=== PATIENT | female | born 1970 | race Caucasian/White ===

== ENCOUNTER 2019-03-24 05:21 | Inpatient (IN) | payer MEDICARE, OTHER ==
[~2019-03-24] VITALS: Ht 165.1 cm; Wt 89.4 kg
[2019-03-24] MEDS ORDERED: FENTANYL PF 100MCG/2ML AMPUL ONE ×3 (05:47→08:28)
[2019-03-24] MEDS ORDERED: MIDAZOLAM HCL 2 MG/2ML VIAL ONE (05:47)
[2019-03-24] MEDS ORDERED: BUPIVACAINE 0.5 % PF 150 MG/30 ML VIAL ONE ×2 (05:49→07:54)
[2019-03-24 06:15] LABS: BASOPHILS % (AUTO) 0.7 % (0.0-2.0); HEMATOCRIT 39 % (33-45); HEMOGLOBIN 13.2 g/dL (11.5-14.8); LYMPHOCYTES # (AUTO) 1.4 /CMM (0.8-4.8); LYMPHOCYTES % (AUTO) 39.1 % (20.0-44.0); MEAN CORPUSCULAR HGB CONC 34 g/dl (31.0-36.0); MEAN CORPUSCULAR VOLUME 90 fL (82-100); MONOCYTES # (AUTO) 0.3 /CMM (0.1-1.30); MONOCYTES % (AUTO) 7.8 % (2.0-12.0); NEUTROPHILS # (AUTO) 1.9 /CMM (1.8-8.9); NEUTROPHILS % (AUTO) 52.4 % (43.0-81.0); PLATELET COUNT (AUTO) 275 /CMM (150-450); RED BLOOD CELL COUNT(AUTO) 4.32 MIL/uL (4.0-5.2); WHITE BLOOD COUNT (AUTO) 3.7 K/uL (4.3-11.0)
[2019-03-24 07:03] LABS: CALCIUM, SERUM 8.9 mg/dL (8.5-10.1); CREATININE 0.9 mg/dL (0.6-1.3)
[2019-03-24] MEDS ORDERED: SEVOFLURANE 250 ML BOTTLE IH ONE (07:19)
[2019-03-24] MEDS ORDERED: TRANEXAMIC ACID 3,000 MG in SODIUM CHLORIDE IRRIG SOLUTION 70 ML IR ONE (07:30)
[2019-03-24] MEDS ORDERED: BACITRACIN 50000 UNITS/VIAL ONE (08:36)
[2019-03-24] MEDS ORDERED: ANESTHESIA TRAY IN PYXIS 1 EA TRAY MC ONE (08:37)
[2019-03-24] MEDS ORDERED: HYDROMORPHONE 1 MG/1 ML DISP.SYRIN ONE ×2 (08:47→09:21)
[2019-03-24] MEDS ORDERED: HYDROCODONE/APAP 5/325MG 1 EACH TABLET PO PRN (09:00)
[2019-03-24] MEDS ORDERED: ASPIRIN 325 MG TABLET PO SCH (09:00)
[2019-03-24] MEDS ORDERED: ONDANSETRON HCL/PF 4 MG/2 ML VIAL IVP PRN (09:00)
[2019-03-24] MEDS ORDERED: ACETAMINOPHEN 325 MG TABLET PO PRN (09:00)
[2019-03-24] MEDS ORDERED: DOCUSATE SODIUM 250 MG CAPSULE PO PRN (09:00)
[2019-03-24] MEDS ORDERED: HYDROMORPHONE 1 MG/1 ML DISP.SYRIN SQ ONE (09:09)
[2019-03-24] MEDS ORDERED: diphenhydrAMINE HCL 25 MG CAPSULE PO PRN (09:30)
[2019-03-24] MEDS ORDERED: LORAZEPAM 1 MG TABLET PO PRN (09:30)
[2019-03-24] MEDS ORDERED: MENTHOL/CETYLPYRD (CEPACOL) 1 LOZ LOZENGE PO PRN (09:30)
[2019-03-24] MEDS ORDERED: CLONIDINE HCL 0.1 MG TABLET PO PRN (09:30)
[2019-03-24] MEDS ORDERED: oxyCODONE IR immediate release 5 MG PO PRN (09:30)
[2019-03-24] MEDS ORDERED: MAG HYDROX/AL HYDROX/SIMETH 30 ML UDC PO PRN (09:30)
[2019-03-24 09:54] VITALS: BP 124/63
[2019-03-24 10:04] VITALS: BP 128/70
--- NOTE | 2019-03-24 10:06 | NUR ---
RN NOTES PT ARRIVED ONTO THE UNIT FROM THE OR S/P RIGHT TOTAL KNEE ARTHROPLASTY @5112. PT HAS LEFT AC #18 INTACT AND PATENT. PT HAS SCD PUMP. AND IMMOBILIZER IN PLACE. ORIENTED THE PATIENT TO THE USE OF THE CALL LIGHT. SAFETY PRECAUTIONS IN PLACE, BED IN LOWEST LOCKED POSITION, X2 SIDE RAILS UP AND CALL LIGHT WITHIN REACH. WILL CONTINUE TO MONITOR.
[2019-03-24 10:34] VITALS: BP 125/69
[2019-03-24] MEDS ORDERED: MAGNESIUM HYDROXIDE 30 ML UDC PO PRN (11:00)
[2019-03-24] MEDS ORDERED: Z GUARD REMEDY 2 OZ OINT TP PRN (11:00)
[2019-03-24 11:04] VITALS: BP 125/68
[2019-03-24] MEDS: IV D5/0.45 NACL 1,000 ML IV PRN ×2 (11:12→22:59)
[2019-03-24] MEDS ORDERED: IBUP-1955 PO (11:36)
[2019-03-24] MEDS ORDERED: OXYC-454 PO (11:36)
[2019-03-24] MEDS ORDERED: LEVO200T PO (11:36)
[2019-03-24] MEDS ORDERED: TRAM50TA2 PO (11:36)
[2019-03-24] MEDS: ONDANSETRON HCL/PF 4 MG/2 ML VIAL IVP PRN ×3 (13:10→21:38)
[2019-03-24] MEDS: ANCEF 1 GM/50 ML D5W IV SCH ×4 (15:14→22:58)
[2019-03-24] MEDS: HYDROMORPHONE 1 MG/1 ML DISP.SYRIN SQ PRN ×2 (15:14→20:34)
--- NOTE | 2019-03-24 15:57 | NUR ---
rn notes per dr mckinney give prn oxycodone with dinner.
[2019-03-24] MEDS: DOCUSATE SODIUM 100 MG CAPSULE PO SCH (17:20)
[2019-03-24] MEDS: oxyCODONE IR immediate release 5 MG PO PRN ×2 (17:22→23:10)
--- NOTE | 2019-03-24 18:47 | NUR ---
RN CLOSING NOTES PT AWAKE AND RESTING IN BED. S/P RIGHT TOTAL KNEE ARTHROPLASTY @0945 DR DICKERSON. PT HAS LEFT AC #18 INTACT AND PATENT AND RUNNING D51/2NS @125 ML/HR. PT HAS DVT PUMPS AND IMMOBILIZER IN PLACE. SAFETY PRECAUTIONS IN PLACE, BED IN LOWEST LOCKED POSITION, X2 SIDE RAILS UP AND CALL LIGHT WITHIN REACH. ALL ORDERS CARRIED OUT ORDERED. ALL PATIENT NEEDS MET DURING SHIFT. WILL ENDORSE TO WATER RESOURCE SPECIALIST NURSE FOR CONTINUITY OF CARE.
--- NOTE | 2019-03-24 19:20 | NUR ---
RN OPEN NOTES RECEIVED PATIENT AWAKE IN BED. A/OX4. NO SIGNS OF DISTRESS OR DISCOMFORT. BREATHING EVEN AND UNLABORED. IV ACCESS IN LAC WITH D5 1/2 NS INFUSING PATENT AND INTACT, NO SIGNS OF REDNESS OR INFILTRATION. DRESSING ON R KNEE C/D/I. IMMOBILIZER INPLACE. BED IN LOW LOCKED POSITION WITH SIDE RAILS X2. CALL LIGHT WITHIN REACH. WILL CONTINUE TO MONITOR.
[2019-03-24 20:00] VITALS: BP 126/82
[2019-03-24] MEDS: FAMOTIDINE (20 MG) 20 MG TABLET PO SCH (20:34)
--- NOTE | 2019-03-24 20:34 | NUR ---
RN NOTES ADMINISTERED DILAUDID 1MG ORDERED FOR 10/10 R KNEE PAIN AT PATIENT REQUEST. VSS. WILL CONTINUE TO MONITOR.
--- NOTE | 2019-03-24 21:38 | NUR ---
RN NOTES ADMINISTERED ZOFRAN 4 MG ORDERED FOR NAUSEA, AT PATIENT REQUEST. WILL CONTINUE TO MONITOR.
[2019-03-24] MEDS ORDERED: ZOLPIDEM TARTRATE 5 MG TABLET PO PRN (22:00)
[2019-03-24] MEDS ORDERED: BISACODYL SUPP (10 MG) 10 MG/SUPP.RECT SUPP.RECT RC PRN (22:00)
[2019-03-24] MEDS ORDERED: SENNOSIDES 8.6 MG TABLET PO PRN (22:00)
--- NOTE | 2019-03-24 23:10 | NUR ---
RN NOTES ADMINISTERED OXY IR 15MG ORDERED FOR 7/10 R KNEE PAIN AT PATIENT REQUEST. VSS. WILL CONTINUE TO MONITOR.
[2019-03-25] MEDS: HYDROMORPHONE 1 MG/1 ML DISP.SYRIN SQ PRN ×7 (01:34→23:27)
--- NOTE | 2019-03-25 01:34 | NUR ---
RN NOTES ADMINISTERED DILAUDID 4MG ORDERED FOR 04/29 R KNEE PAIN AT PATIENT REQUEST. VSS. WILL CONTINUE TO MONITOR. Addendum: 03/25/19 at 0705 by JAVIER GUEVARA RN ERROR: DILAUDID 1MG WAS GIVEN.
[2019-03-25] MEDS: oxyCODONE IR immediate release 5 MG PO PRN ×6 (03:24→20:34)
--- NOTE | 2019-03-25 03:24 | NUR ---
RN NOTES ADMINISTERED OXY IR 15MG ORDERED FOR 9/10 R KNEE PAIN AT PATIENT REQUEST. VSS. WILL CONTINUE TO MONITOR.
[2019-03-25] MEDS: ONDANSETRON HCL/PF 4 MG/2 ML VIAL IVP PRN ×2 (05:59→10:39)
--- NOTE | 2019-03-25 05:59 | NUR ---
RN NOTES ADMINISTERED ZOFRAN 4MG ORDERED FOR NAUSEA AT PATIENT REQUEST. WILL CONTINUE TO MONITOR.
--- NOTE | 2019-03-25 06:58 | NUR ---
RN OPEN NOTES PATIENT RESTING IN BED, EASILY AROUSABLE. A/OX4. NO SIGNS OF DISTRESS OR DISCOMFORT. BREATHING EVEN AND UNLABORED. IV ACCESS IN LAC WITH D5 1/2 NS INFUSING PATENT AND INTACT, NO SIGNS OF REDNESS OR INFILTRATION. DRESSING ON R KNEE C/D/I. IMMOBILIZER INPLACE. ALL NEEDS MET. NO SIGNIFICANT CHANGES THROUGH THE NIGHT. BED IN LOW LOCKED POSITION WITH SIDE RAILS X2. CALL LIGHT WITHIN REACH. WILL ENDORSE TO AM SHIFT FOR JAKE
--- NOTE | 2019-03-25 07:01 | NUR ---
YISEL NOTES ADMINISTERED DILAUDID 4MG ORDERED FOR 03/29 R KNEE PAIN AT PATIENT REQUEST. VSS. WILL CONTINUE TO MONITOR. Addendum: 03/25/19 at 0703 by JAVIER GUEVARA RN ERROR: WRONG TIME DOCUMENTED. WAS DONE AT 0559 Addendum: 03/25/19 at 0705 by JAVIER GUEVARA RN ERROR: DILAUDID 1MG WAS GIVEN.
--- NOTE | 2019-03-25 07:33 | NUR ---
MS/RN OPENING NOTE PATIENT IN BED IN STABLE CONDITION. A/O X 4. NO SIGNS OF ACUTE DISTRESS. COMPLAIN OF PAIN TO RIGHT KNEE S/P RIGHT KNEE ARTHROPLASTY RATED 9/10, PRN DILAUDID ADMINISTERED AT 5:59AM. WILL ADMINISTER OXY IR FOR PAIN MGMT AT THIS TIME. ALL NEEDS ATTENDED TO. CALL LIGHT WITHIN REACH. WILL CONTINUE TO MONITOR TO ENSURE SAFETY.
[2019-03-25 07:43] LABS: CALCIUM, SERUM 8.1 mg/dL (8.5-10.1); CREATININE 0.7 mg/dL (0.6-1.3); MAGNESIUM 1.5 mg/dL (1.8-2.4); PHOSPHORUS 3.5 mg/dL (2.5-4.9); POTASSIUM 3.5 mmol/L (3.5-5.1)
[2019-03-25 07:53] LABS: BASOPHILS % (AUTO) 0.5 % (0.0-2.0); HEMATOCRIT 33 % (33-45); HEMOGLOBIN 11.3 g/dL (11.5-14.8); LYMPHOCYTES # (AUTO) 0.7 /CMM (0.8-4.8); LYMPHOCYTES % (AUTO) 8.2 % (20.0-44.0); MEAN CORPUSCULAR HGB CONC 34 g/dl (31.0-36.0); MEAN CORPUSCULAR VOLUME 90 fL (82-100); MONOCYTES # (AUTO) 0.6 /CMM (0.1-1.30); MONOCYTES % (AUTO) 7.2 % (2.0-12.0); NEUTROPHILS # (AUTO) 7.5 /CMM (1.8-8.9); NEUTROPHILS % (AUTO) 84.1 % (43.0-81.0); PLATELET COUNT (AUTO) 240 /CMM (150-450); RED BLOOD CELL COUNT(AUTO) 3.71 MIL/uL (4.0-5.2); WHITE BLOOD COUNT (AUTO) 8.9 K/uL (4.3-11.0)
[2019-03-25 08:00] VITALS: BP 129/75
[2019-03-25] MEDS: BISACODYL (5 MG) 5 MG TABLET.DR PO SCH (08:01)
[2019-03-25] MEDS: DOCUSATE SODIUM 100 MG CAPSULE PO SCH ×2 (08:01→16:02)
[2019-03-25] MEDS: ASPIRIN 325 MG TABLET PO SCH ×2 (08:01→16:02)
[2019-03-25] MEDS: FAMOTIDINE (20 MG) 20 MG TABLET PO SCH ×2 (08:01→20:29)
[2019-03-25] MEDS: Magnesium 1GM/D5W 100ML PREMIX 100 ML IV SCH ×2 (10:34→11:43)
--- NOTE | 2019-03-25 14:23 | NUR ---
MS/RN SPOKE WITH DR ELIECER Khoury AND NOTIFIED PATIENT NOTED DRINKING ENOUGH FLUIDS, IF OKAY TO DC IV FLUIDS PER DR ELIECER Ryan. ORDER TO DC D5 .45NS AT 125MLS/HR. NOTED AND CARRIED OUT. PATIENT NOTIFIED.
[2019-03-25 16:00] VITALS: BP 126/71
--- NOTE | 2019-03-25 16:37 | NUR ---
MS/RN SPOKE WITH DR CASTORENA AND NOTIFIED PATIENT PAIN LEVEL PRIOR TO DILAUDID 1MG SQ RATED 10/10 AND POST DILAUDID RATED 8/10 AND OXY IR 15MG GIVEN IN BETWEEN DILAUDID 1MG SQ PRN, AND STILL NO RELIEVE FROM PAIN AND PRIOR TO WORKING WITH CPM MACHINE PAIN WAS BEING RELIEVED BUT S/P CPM PAIN LEVEL GOES DOWN BUT NO RELIEVE STILL THERE IS THROBBING PAIN NOTED. PER DR CASTORENA CONTINUE THE SAME REGIMEN FOR NOW AND CONTINUE TO MONITOR AND WILL ASSESS THE PATIENT TOMORROW.
--- NOTE | 2019-03-25 18:08 | NUR ---
MS/RN CLOSING NOTE PATIENT IN BED IN STABLE CONDITION. A/O X 4. NO SIGNS OF ACUTE DISTRESS. S/P OXY IR 15MG AT 5:33PM FOR RIGHT KNEE PAIN S/P RIGHT KNEE TOTAL ARTHROPLASTY. TOLERATING WELL. ALL NEEDS ATTENDED TO. CALL LIGHT WITHIN REACH. WILL ENDORSE TO NEXT SHIFT FOR CONTINUITY OF CARE.
--- NOTE | 2019-03-25 19:05 | NUR ---
MS RN OPENING NOTES Patient received in bed, alert, oriented x 4. Family at bedside. Breathing even and unlabored. Not in any distress, on room air. No complaints of pain or discomfort at this time. R knee immobilizer in place. Call light within reach, bed in low, locked position. Will continue to monitor accordingly
[2019-03-25 20:00] VITALS: BP 141/76
[2019-03-25 20:14] VITALS: BP 141/76
--- NOTE | 2019-03-25 20:35 | NUR ---
RN NOTES Patient c/o R knee pain, 02/26. Requested for pain pill. Oxycodone IR given as ordered. Will continue to monitor accordingly
[2019-03-26] MEDS: oxyCODONE IR immediate release 5 MG PO PRN ×4 (01:34→12:51)
[2019-03-26] MEDS: HYDROMORPHONE 1 MG/1 ML DISP.SYRIN SQ PRN ×3 (03:52→11:09)
[2019-03-26] MEDS: ONDANSETRON HCL/PF 4 MG/2 ML VIAL IVP PRN ×2 (03:56→08:57)
[2019-03-26 06:26] LABS: BASOPHILS % (AUTO) 0.1 % (0.0-2.0); HEMATOCRIT 34 % (33-45); HEMOGLOBIN 11.6 g/dL (11.5-14.8); LYMPHOCYTES # (AUTO) 0.6 /CMM (0.8-4.8); LYMPHOCYTES % (AUTO) 7.8 % (20.0-44.0); MEAN CORPUSCULAR HGB CONC 34 g/dl (31.0-36.0); MEAN CORPUSCULAR VOLUME 90 fL (82-100); MONOCYTES # (AUTO) 0.8 /CMM (0.1-1.30); MONOCYTES % (AUTO) 9.9 % (2.0-12.0); NEUTROPHILS # (AUTO) 6.5 /CMM (1.8-8.9); NEUTROPHILS % (AUTO) 82.2 % (43.0-81.0); PLATELET COUNT (AUTO) 240 /CMM (150-450); RED BLOOD CELL COUNT(AUTO) 3.81 MIL/uL (4.0-5.2); WHITE BLOOD COUNT (AUTO) 7.9 K/uL (4.3-11.0)
--- NOTE | 2019-03-26 06:37 | NUR ---
MS RN CLOSING NOTES Patient still sleeping in bed, easily arousable. Breathing even and unlabored. Not in any distress, on room air. No acute changes overnight. No complaints of pain at this time. Patient used CPM machine for about 2 hrs- tolerating well. All needs attended to. Will endorse JAKE to oncoming RN.
[2019-03-26 06:57] LABS: CALCIUM, SERUM 8.9 mg/dL (8.5-10.1); CREATININE 0.7 mg/dL (0.6-1.3); POTASSIUM 3.8 mmol/L (3.5-5.1)
--- NOTE | 2019-03-26 07:25 | NUR ---
RN OPENING NOTE PT WAS RECEIVED IN BED AT LOWEST AND LOCKED POSITION WITH SIDE RAILS UP X2, A/O X4 BREATHING EVEN AND UNLABORED ON RA, NO S/S OF ANY PAIN OR DISTRESS NOTED AT THIS TIME, PT NOTED TO HAVE TO HAVE RIGHT KNEE DRESSING THAT WILL BE CHANGED TODAY BY MD PER NIGHT RN, PT WAS NOTED TO BE AMBULATORY WITH WALKER, PER PT SHE HAS ALREADY DONE TWO HOURS OF CPM TODAY. NOTED TO HAVE LEFT AC IV THAT IS PATENT AND INTACT, POSSIBLE D.C/C PLANNING TODAY. SAFETY PRECAUTIONS IN PLACE, CALL LIGHT WITHIN, WILL MONITOR PT ACCORDINGLY
[2019-03-26] MEDS ORDERED: LEVOTHYROXINE SODIUM 100 MCG TABLET PO SCH (07:30)
[2019-03-26 08:00] VITALS: BP 121/68
[2019-03-26] MEDS: DOCUSATE SODIUM 100 MG CAPSULE PO SCH ×2 (08:02→16:31)
[2019-03-26] MEDS: FAMOTIDINE (20 MG) 20 MG TABLET PO SCH (08:03)
[2019-03-26] MEDS: BISACODYL (5 MG) 5 MG TABLET.DR PO SCH (08:03)
[2019-03-26] MEDS: ASPIRIN 325 MG TABLET PO SCH ×2 (08:03→16:31)
--- NOTE | 2019-03-26 09:40 | NUR ---
RN NOTE PT CURRENTLY WALKING AROUND THE FLOOR WITH PHYSICAL THERAPY AND THE USE OF HER WALKER
--- NOTE | 2019-03-26 11:25 | NUR ---
RN NOTE LEFT AC GAUGE 18 IV REMOVED DUE TO LEAKAGE, NEW 24 GAUGE IV INSERTED IN RIGHT FOREARM AT THIS TIME
[2019-03-26 16:00] VITALS: BP 123/70
--- NOTE | 2019-03-26 17:09 | NUR ---
MS RN NOTE PER LYNN DALOTN NO NEED FOR DRESSING CHANGE, DRESSING CAN BE DONE IN FOLLOW UP OFFICE VISIT, PT CLEARED FOR D/C
--- NOTE | 2019-03-26 17:29 | NUR ---
DISCHARGE NOTE PT WAS DISCHARGED AT THIS TIME IN MEDICALLY STABLE CONDITION BACK HOME WITH HER FRIEND LAKSHMI BURCH AT THIS TIME. IV AND ID BAND WERE REMOVED. ALL D/C PAPERWORK, EXITCARE, AND BELONGING LIST WERE SIGNED, DISCUSSED, AND HANDED TO THE PT. ALL BELONGINGS WERE TAKEN BY THE PATIENT. PT SKIN WAS NOTED TO BE DRY AND INTACT, PER SOPHIE BUCIO DRESSING ON RIGHT KNEE TO BE CHANGED IN OFFICE BY MD. ALL NEEDS WERE ATTENDED TO DURING HER STAY. PT WAS TAKEN DOWN BY ME AT THIS TIME VIA WHEELCHAIR WHERE SHE LEFT WITH HER FRIEND IN THEIR PRIVATE CAR.
== END 2019-03-26 17:24 | disposition home or self-care (01) | DRG 470 ==
LOC: DS 05:21 → MED 10:25
PROVIDERS: ADMIT Hospitalist; ATTEND Hospitalist
PROC: 0SRC0J9 Replacement of Right Knee Joint with Synthetic Substitute, Cemented, Open Approach (ICD-10-PCS; principal; 2019-03-24)
DX: M12.561 Traumatic arthropathy, right knee (principal); K59.00 Constipation, unspecified; I10 Essential (primary) hypertension; E66.9 Obesity, unspecified; Z68.32 Body mass index [BMI] 32.0-32.9, adult; Z98.84 Bariatric surgery status; Z90.710 Acquired absence of both cervix and uterus; Z87.891 Personal history of nicotine dependence; Z98.890 Other specified postprocedural states; Z83.3 Family history of diabetes mellitus; Z82.0 Family history of epilepsy and other diseases of the nervous system; Z80.0 Family history of malignant neoplasm of digestive organs; E03.9 Hypothyroidism, unspecified; E83.42 Hypomagnesemia; Z79.899 Other long term (current) drug therapy; K59.09 Other constipation; E05.90 Thyrotoxicosis, unspecified without thyrotoxic crisis or storm
CPT/HCPCS: 36415; 80048-TC; 80061-TC; 83735-TC; 84100-TC; 85025-TC; 85610-TC; 85730-TC; 86850-TC; 86921-TC; 87081-TC; 88305-TC; 88311-TC; 97110-TC; 97116-TC; 97530-TC; 97760-TC; A4217; C1713; G0378; J0330; J0690; J1100; J1170; J2250; J2405; J2765; J3010; J3475; J3490; J7060; L1830; Q0163

== ENCOUNTER 2019-09-11 05:04 | Inpatient (IN) | payer MEDICARE, OTHER ==
[~2019-09-11] VITALS: Ht 167.6 cm; Wt 82.6 kg
[~2019-09-11 05:04] MED LIST: LEVO200T PO; OXYC-454 PO; TRAM50TA2 PO
[2019-09-11] MEDS ORDERED: MORPHINE SULFATE/PF 10 MG/10ML (1MG/ML) AMPUL ONE (05:50)
--- NOTE | 2019-09-11 05:50 | NUR ---
MS RN NOTES PATIENT ARRIVED ON FLOOR AT 0550 AND WALKED TO ROOM. PATIENT IS ALERT AND ORIENTED X 4. BREATHING EVEN AND UNLABORED ON ROOM AIR STATING 98%. DENIES ACUTE RESPIRATORY DISTRESS, NO ACUTE PAIN. IV ON RAC #20G. CLEAN DRY AND INTACT. SHOWS NO SIGNS OF INFILTRATION, NO REDNESS. SAFETY PRECAUTIONS IN PLACE. CONSENT FOR SURGERY SIGNED, BELONGINGS CHECKLIST COMPLETE. BED LOWEST POSITION, LOCKED, AND CALL LIGHT KEPT WITHIN REACH.
[2019-09-11] MEDS ORDERED: MIDAZOLAM HCL 2 MG/2ML VIAL ONE (05:51)
[2019-09-11] MEDS ORDERED: SCOPOLAMINE HBR 1 EA PATCH.TD72 TD ONE (05:52)
[2019-09-11 05:55] VITALS: BP 113/69
[2019-09-11] MEDS ORDERED: BUPIVACAINE 0.5 % PF 150 MG/30 ML VIAL ONE (06:00)
[2019-09-11] MEDS ORDERED: BACITRACIN 50000 UNITS/VIAL ONE (06:00)
[2019-09-11] MEDS ORDERED: ANESTHESIA TRAY IN PYXIS 1 EA TRAY MC ONE (06:00)
--- NOTE | 2019-09-11 06:20 | NUR ---
MS RN NOTES PATIENT LEFT FLOOR VIA BED FOR SURGERY AT 0620. WILL ENDORSE TO ONCOMING NURSE.
[2019-09-11] MEDS ORDERED: TRANEXAMIC ACID 3,000 MG in SODIUM CHLORIDE IRRIG SOLUTION 70 ML IR ONE (06:30)
[2019-09-11] MEDS ORDERED: FENTANYL PF 100MCG/2ML AMPUL ONE (08:48)
[2019-09-11] MEDS ORDERED: DULCOLAX 10 MG/SUPP.RECT RC PRN (09:00)
[2019-09-11] MEDS ORDERED: SENOKOT 8.6 MG TABLET PO PRN (09:00)
[2019-09-11] MEDS ORDERED: IV D5/0.45 NACL 1,000 ML IV PRN (09:00)
[2019-09-11] MEDS ORDERED: TYLENOL 650 MG TABLET PO PRN (09:00)
[2019-09-11] MEDS ORDERED: ZOFRAN 4mg/2ML IV PRN (09:00)
[2019-09-11] MEDS ORDERED: HYDROCODONE/APAP 5/325MG 1 EACH TABLET PO PRN (09:00)
[2019-09-11] MEDS ORDERED: AMBIEN 5 MG TABLET PO PRN (09:00)
[2019-09-11] MEDS ORDERED: COLACE 250 MG CAPSULE PO PRN (09:00)
[2019-09-11] MEDS ORDERED: HYDROMORPHONE 1 MG/1 ML DISP.SYRIN ONE (09:03)
[2019-09-11] MEDS ORDERED: IBUP-1957 PO (09:49)
[2019-09-11] MEDS ORDERED: ALBU18HF2 INH (09:49)
[2019-09-11] MEDS ORDERED: HYDR-3980 PO (09:49)
[2019-09-11] MEDS ORDERED: FLUT16SP16 (09:49)
[2019-09-11 11:46] LABS: HEMOGLOBIN 12.6 g/dL (11.5-14.8)
--- NOTE | 2019-09-11 12:00 | NUR ---
TELE/RN NOTES D/C IV FLUIDS, IF PATIENT CAN TOLERATE ORAL FEEDING PER MD.
[2019-09-11] MEDS: HYDROMORPHONE 1 MG/1 ML DISP.SYRIN SQ PRN ×4 (12:55→22:32)
[2019-09-11] MEDS ORDERED: ALBUTEROL FS 2.5 MG/3 ML VIAL.NEB IH PRN (14:00)
[2019-09-11] MEDS ORDERED: FLUTICASONE PROPIONATE 16 GM BOTTLE NS PRN (14:00)
[2019-09-11] MEDS: oxyCODONE IR immediate release 5 MG PO PRN ×4 (14:32→23:32)
[2019-09-11] MEDS ORDERED: MAG HYDROX/AL HYDROX/SIMETH 30 ML UDC PO PRN (15:00)
[2019-09-11 16:13] VITALS: BP 126/74
[2019-09-11] MEDS: ANCEF 1 G in IV D5W 50 ML IV SCH ×2 (16:30→23:32)
[2019-09-11] MEDS: ASPIRIN 325 MG TABLET PO SCH (16:30)
--- NOTE | 2019-09-11 18:38 | NUR ---
TELE/RN NOTES RECEIVED PATIENT CAME FROM SURGERY. ALERT AND CONFUSED. NO RESPIRATORY DISTRESS NOTED. VITAL SIGN TAKEN EVERY HOUR 09:30 BP- 122/87 P- 89 T 98 SAO2 95. 10:30 BP 131/96 P- 80 T 98.3 SAO2 98 11:30 BP 135/65 P 76 T 98.3 SAO2 98. 12:30 98/60 P 81 SAO2 98 T 98 1330. 1600 BP 120/62 P 78 SAO2 98. BED IN LOWEST POSITION SEEN AND EXAMINED BY MD WITH ORDER MADE AND CARRIED OUT. PATIENT WITH ON OFF PAIN. PAIN MEDS WAS ADMINISTERED. WILL ENDORSED TO CATEGORY SPECIALIST.
--- NOTE | 2019-09-11 19:35 | NUR ---
actuarial intern: received report from roney ellis. pt in bed, awake, a/o x4, upset about her medications. s/p left total knee arthroplasty 09/11/[address] ellis left leg with jayden wrap dressing, c/d/i, pt denies any numbness or tingling sensation on leg, except for c/o sharp post op pain, no active bleeding noted. pt able to move and wiggle toes. offered to elevate heel with rolled towel, but pt refused. ice pack applied on left knee area. iv access patent and flushing well, on hl as pt refusing for iv fluid stated she was tolerating po intake well. scd in placed. friends at bed side. safety precautions for fall initiated, call light in reach, will continue monitoring pt.
--- NOTE | 2019-09-11 19:40 | NUR ---
prn dilaudid sq: pt c/o 05/29 sharp pain, upset because stated been waiting for pain medications for an hour ago, called day rn multiple times according to pt. prn dilaudid 1mg sq administered to pt. will cotninue to monitor and reassess pt.
[2019-09-11 20:00] VITALS: BP 128/76
--- NOTE | 2019-09-11 20:31 | NUR ---
PRN OXY IR: PT C/O 04/29 PAIN, REQUESTING FOR OXY IR, PRN OXY IR 15MG TAB PO ADMINISTERED TO PT. WILL CONTINUE TO MONITOR AND REASSESS PT
[2019-09-11 21:25] VITALS: BP 128/76
[2019-09-11] MEDS: PANTOPRAZOLE 40 MG TABLET.DR PO SCH (22:34)
--- NOTE | 2019-09-11 22:35 | NUR ---
prn dilaudid sc: pt c/o 03/29 pain requesting for dilaudid. pain on left knee, post op tka, prn [id number] sq administered at this time. will continue to monitor and reassess pt.
--- NOTE | 2019-09-11 23:32 | NUR ---
PRN OXY IR: PT C/O 03/29 LEFT KNEE PAIN, REQUESTING FOR OXY IR, PRN OXY IR 15MG TAB PO ADMINISTERED TO PT AT THIS TIME.
[2019-09-12] VITALS (8 sets, daily range): BP systolic 114–130; BP diastolic 69–88
--- NOTE | 2019-09-12 01:20 | NUR ---
RN NOTES: WHEN CHECK ON PT, SHE MANAGE TO REMOVE HER SCD, STATED SHE DOESNT WANT IT AT THE MOMENT, EDUCATION PROVIDED TO PT.
[2019-09-12] MEDS: HYDROMORPHONE 1 MG/1 ML DISP.SYRIN SQ PRN ×7 (01:32→20:54)
--- NOTE | 2019-09-12 01:33 | NUR ---
PRN DILAUDID SC: PT C/O 04/29 LEFT KNEE, LEG PAIN, REQUESTING FOR DILAUDID, PRN DILAUDID 1MG SC ADMINISTERED AT THIS TIME.
--- NOTE | 2019-09-12 01:36 | NUR ---
PRN SENNA: PT REQUESTED SENNA FOR CONSTIPATION. PRN SENNA ADMINISTERED AT THIS TIME. PRUNE JUICE PROVIDED
[2019-09-12] MEDS: oxyCODONE IR immediate release 5 MG PO PRN ×7 (02:32→21:50)
--- NOTE | 2019-09-12 02:32 | NUR ---
prn oxy ir: pt c/o 03/29 left knee leg post op pain, requesting for oxy ir, prn oxy ir 15mg tab po administered to pt at this time.
--- NOTE | 2019-09-12 04:32 | NUR ---
prn dilaudid sc: pt c/o 04/29 left knee and leg pain, requesting for dilaudid, prn dilaudid 1mg sc administered to pt at this time.
[2019-09-12] MEDS: LEVOTHYROXINE SODIUM 175 MCG TABLET PO SCH (04:36)
--- NOTE | 2019-09-12 04:37 | NUR ---
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
--- NOTE | 2019-09-12 05:33 | NUR ---
PRN OXY IR: PT C/O 03/29 LEFT KNEE PAIN, REQUESTING FOR OXY IR, PRN OXY IR 15MG TAB PO ADMINISTERED TO PT AT THIS TIME.
--- NOTE | 2019-09-12 05:44 | NUR ---
KATZ CATH REMOVAL: PT REQUESTED TO REMOVE HER KATZ CATHETER STATED SHE ALREADY HAD PT YESTERDAY AND WAS CLAIMED SHE'S UNCOMFORTABLE HAVING KATZ CATHETER. RELAYED TO RN SURGERY ICU. KATZ CATH REMOVED AT THIS TIME. PT STATED SHE FEELS A LOT BETTER WITHOUT THE CATHETER.
--- NOTE | 2019-09-12 06:42 | NUR ---
END OF SHIFT REPORT: PT IN BED, REMAINS A/O X4, ON RA RESPIRATIONS EVEN AND UNLABORED. IV ACCESS REMAINS PATENT AND FLUSHING WELL, ON HL. NO S/S OF IV INFILTRATION NOTED. SCD IN USE.PRN PAIN MEDS ADMINISTERED ORDERED. LEFT LEG DRESSING/JERSON RAP REMAINS C/D/I, NO ACTIVE BLEEDING NOTED. VS REMAINS STABLE, NEEDS ATTENDED. BLE KEPT OFFLOADED ON PILLOWS. SAFETY PRECAUTIONS FOR FALL REMAINS ENGAGED, CALL LIGHT IN REACH, WILL ENDORSE TO DAY RN FOR CONTINUITY OF CARE.
--- NOTE | 2019-09-12 07:25 | NUR ---
RUG WASHER OPENING NOTES RECEIVED PT IN BED, AWAKE. A/O X4. PT TOLERATING RA, WITH NO ACUTE RESPIRATORY DISTRESS NOTED. PT STATED 8/10 PAIN LEVEL AND REQUESTING FOR PRN DILAUDID 1MG SQ. PT CONCERN TO HAVE PAIN MEDICINES TO BE GIVEN TO HER EVERY 3HOURS FOR PHYSICAL THERAPY PREPARATION. PT ON TELEMONITORING WITH SR 93. PIV TO RAC G20, FLUSHED WITH NS, INTACT AND OPERATIONAL. PT KEPT COMFORTABLE IN BED. CALL LIGHT KEPT WITHIN REACH. PT'S BED IN LOWEST, LOCKED POSITION WITH SRX3. WILL CONTINUE PLAN OF CARE.
[2019-09-12] MEDS: ASPIRIN 325 MG TABLET PO SCH ×2 (08:32→16:50)
--- NOTE | 2019-09-12 13:24 | NUR ---
RN NOTES PT STATED SHE HASNT HAD BM FRO 2 DAYS. RN OFFERED PRUNE JUICE TO STARTAND PT THREW IT UP. ZOFRAN PRN GIVEN ORDERED AND MD MADE AWARE OF MOM ORDER. MOM ORDER PLACED. PT MADE AWARE. WILL ADMINISTER ORDERED.
[2019-09-12] MEDS ORDERED: MAGNESIUM HYDROXIDE 30 ML UDC PO PRN (13:25)
--- NOTE | 2019-09-12 13:50 | NUR ---
RN NOTES PT REQUESTED FOR DILAUDID 1MG PRN, PAIN LEVEL OF 8/10 FOR LEFT LEG. PAIN MEDICINE GIVEN ORDERED.
--- NOTE | 2019-09-12 14:45 | NUR ---
RN NOTES PT REQUESTED FOR OXY IR 15MG PRN, PAIN LEVEL OF 6-7/10 FOR LEFT LEG. PAIN MEDICINE GIVEN ORDERED.
[2019-09-12] MEDS ORDERED: POLYETHYLENE GLYCOL 3350 17 GM POWD.PACK PO PRN (18:30)
--- NOTE | 2019-09-12 18:39 | NUR ---
MS RN CLOSING NOTES PT REMAINS IN BED, AWAKE. A/O X4. PT TOLERATING RA, WITH NO ACUTE RESPIRATORY DISTRESS NOTED. PT ON PAIN MANAGEMENT FOR LEFT LEG S/P LEFT TKA, PRN PAIN MEDICINES GIVEN ORDERED. PIV TO RAC G20, FLUSHED WITH NS, INTACT AND OPERATIONAL. PT KEPT COMFORTABLE IN BED. ALL NEEDS AND CARE ATTENDED. CALL LIGHT KEPT WITHIN REACH. PT'S BED IN LOWEST, LOCKED POSITION WITH SRX3. WILL ENDORSE TO INCOMING NIGHT NURSE FOR JAKE.
--- NOTE | 2019-09-12 19:15 | NUR ---
RN NOTES : LYING COMFORTABLY IN BED, A/OX4, S/P LEFT TKA WITH BRP,ABLE TO AMBULATE USING THE FWW, RAC G#20 INTACT AND PATENT, LEFT ELG SURGICAL SITE DRESSING IS INTACT, NO DRAINAGE NOTED. FALL,SAFETY ASPIRATION PRECAUTION OBSERVE, BED LOW AND LOCKED, CALL LIGHT KEPT WITHIN EASY REACH.
--- NOTE | 2019-09-12 20:59 | NUR ---
RN NOTES: PAIN 05/29. DILAUDID GIVEN.NON PHARMACOLOGIC INTERVENTION RENDERED. Addendum: 09/13/19 at 724 by UNIQUE ZHOU RN ADDED NOTES: AT 722 NOTIFIED LAURA/PHARMACY THAT NOTHING WAS WASTED IN DILAUDID 1MG/ML.COMPLETE DOSE WAS GIVEN TO PATIENT AT 2053.
[2019-09-12] MEDS: PANTOPRAZOLE 40 MG TABLET.DR PO SCH (21:50)
--- NOTE | 2019-09-12 21:56 | NUR ---
RN NOTES: NOT RELIEVED WITH DILAUDID.REQUEST FOR OXY IR GIVEN.NON PHARMACOLOGIC INTERVENTION RENDERED.
[2019-09-13] VITALS: BP 123/82
[2019-09-13] MEDS: HYDROMORPHONE 1 MG/1 ML DISP.SYRIN SQ PRN ×3 (00:18→07:01)
--- NOTE | 2019-09-13 00:23 | NUR ---
RN NOTES: COMPALINED 10/10 PAIN ON THE SURGICAL SITE-LEFT KNEE, PAIN MEDS GIVEN PER PATIENT REQUEST.KEPT ON CLOSE WATCH.
[2019-09-13 00:37] VITALS: BP 123/82
[2019-09-13] MEDS: oxyCODONE IR immediate release 5 MG PO PRN ×3 (00:55→08:00)
--- NOTE | 2019-09-13 01:01 | NUR ---
RN NOTES: CALLED AGAIN FOR P.O. PAIN MEDICATION, SHE VERBALIZED THE DILAUDID DID NOT HELP WELL SHE NEEDS HER OTHER MEDICATION, GIVEN.
--- NOTE | 2019-09-13 04:20 | NUR ---
RN NOTES: CALLED FOR ASSISTANCE, OMAR IN THE COMMODE, PAIN MEDICATION GIVEN PER REQUEST, AFTER SHE WALK BACK TO HER BED USING FWW, NEEDS ATTENDED.
--- NOTE | 2019-09-13 05:25 | NUR ---
RN NOTES: AWAKE, PAIN SUBSIDE, SHE REQUEST TO START ON CPM MACHINE, TOLERATED ACTIVITY. KEPT MONITORED.
[2019-09-13] MEDS: LEVOTHYROXINE SODIUM 175 MCG TABLET PO SCH (06:49)
--- NOTE | 2019-09-13 07:28 | NUR ---
RN NOTES: DILAUDID GIVEN AT O701, STILL WITH ON AND OFF PAIN ON THE LEFT KNEE, CONTINUE TO USE CPM TOLERATED, FALL AND SAFETY PRECAUTION OBSERVED, SHE VERBALIZE SHE FELT BETTER TODAY, FOR POSSIBLE DISCHARGE THIS MORNING, ENDORSED FOR CONTINUITY OF CARE.
--- NOTE | 2019-09-13 07:35 | NUR ---
MS RN OPENING NOTES PT IN BED, AWAKE. A/O X4. PT TOLERATING RA, WITH NO ACUTE RESPIRATORY DISTRESS NOTED. PT ON PAIN MANAGEMENT FOR LEFT LEG S/P LEFT TKA, PRN PAIN MEDICINE DILAUDID WAS JUST GIVEN AT 0702 PT AWARE. PT COMPLAINED OF INDIGESTION, RN TO GIVE MAALOX. ALSO, PT LOOKING FORWARD TO BEING DISCHARGE TODAY. PIV TO RAC G20, FLUSHED WITH NS, INTACT AND OPERATIONAL. PT KEPT COMFORTABLE IN BED. CALL LIGHT KEPT WITHIN REACH. PT'S BED IN LOWEST, LOCKED POSITION WITH SRX3. WILL CONTINUE PLAN OF CARE.
[2019-09-13 08:00] VITALS: BP 123/72
[2019-09-13] MEDS: ASPIRIN 325 MG TABLET PO SCH (08:00)
--- NOTE | 2019-09-13 08:03 | NUR ---
MS RN NOTES PT REQUESTED FOR OXY IR 15MG FOR 6/10 PAIN SCALE. PRN PAIN MEDICINE GIVEN ORDERED.
--- NOTE | 2019-09-13 10:26 | NUR ---
MS RN OPENING NOTES PT IN BED, AWAKE. A/O X4, TO BE DISCHARGE HOME. PT TOLERATING RA, WITH NO ACUTE RESPIRATORY DISTRESS NOTED. PT DENIES ANY PAIN OR DISCOMFORT AT THE TIME OF DISCHARGE. PT'S LEFT KNEE SURGERY SITE, PICTURE NOT TAKEN, PT REFUSED FOR RN TO UNWRAPPED AND RE DRESS THE SITE, PT'S STATING PA CAME YESTERDAY AND SAW IT ALREADY, PT TOOK A PICTURE HERSELF ON HER PHONE AND SHOWED RN HOW IT LOOKS. RN EXPLAINED UNIT PROTOCOL. PT INSISTED TO REFUSE AND IN A HURRY TO GO HOME. PT ALSO ADDED, SHE'LL HAVE THE FOLLOW UP APPOINTMENT SOON ANYWAY. PT REVIEWED AND SIGNED DISCHARGE INSTRUCTIONS AND INVENTORY LIST. ALL BELONGINGS WITH THE PATIENT. PIV TO RAC G20, REMOVED AND APPLIED DRY DRESSING. ALL NEEDS AND CARE ATTENDED. PT HAPPY WITH THE CARE PROVIDED. PT ESCORTED BY ANTWAN VIA WHEELCHAIR TO THE LOBBY. PT LEFT THE UNIT AT 1025. CN/ALONDRA AND HOSPITALIST/KR AWARE OF DISCHARGE. Addendum: 09/13/19 at 1027 by OSCAR CHANDLER RN MS CLIENT RELATIONSHIP EXECUTIVE NOTE*
--- NOTE | 2019-09-13 10:27 | NUR ---
MS SLAG WORKER NOTES PT IN BED, AWAKE. A/O X4, TO BE DISCHARGE HOME. PT TOLERATING RA, WITH NO ACUTE RESPIRATORY DISTRESS NOTED. PT DENIES ANY PAIN OR DISCOMFORT AT THE TIME OF DISCHARGE. PT'S LEFT KNEE SURGERY SITE, PICTURE NOT TAKEN, PT REFUSED FOR RN TO UNWRAPPED AND RE DRESS THE SITE, PT'S STATING PA CAME YESTERDAY AND SAW IT ALREADY, PT TOOK A PICTURE HERSELF ON HER PHONE AND SHOWED RN HOW IT LOOKS. RN EXPLAINED UNIT PROTOCOL. PT INSISTED TO REFUSE AND IN A HURRY TO GO HOME. PT ALSO ADDED, SHE'LL HAVE THE FOLLOW UP APPOINTMENT SOON ANYWAY. PT REVIEWED AND SIGNED DISCHARGE INSTRUCTIONS AND INVENTORY LIST. ALL BELONGINGS WITH THE PATIENT. PIV TO RAC G20, REMOVED AND APPLIED DRY DRESSING. ALL NEEDS AND CARE ATTENDED. PT HAPPY WITH THE CARE PROVIDED. PT ESCORTED BY MAID SUPERVISOR VIA WHEELCHAIR TO THE LOBBY. PT LEFT THE UNIT AT 1025. CN/ALONDRA AND HOSPITALIST/KR AWARE OF DISCHARGE.
== END 2019-09-13 13:00 | disposition home or self-care (01) | DRG 470 ==
LOC: DS 05:04 → MED 05:44 → TELE 19:09 → MED 09-13 09:34
PROVIDERS: ADMIT Internal Medicine; ATTEND Internal Medicine
PROC: 0SRD0J9 Replacement of Left Knee Joint with Synthetic Substitute, Cemented, Open Approach (ICD-10-PCS; principal; 2019-09-11)
DX: M17.12 Unilateral primary osteoarthritis, left knee (principal); E03.9 Hypothyroidism, unspecified; J45.909 Unspecified asthma, uncomplicated; I10 Essential (primary) hypertension; Z90.710 Acquired absence of both cervix and uterus
CPT/HCPCS: 36415; 85027-TC; 88305-TC; 88311-TC; 97116-TC; 97530-TC; 97760-TC; G0378; J0690; J1100; J1170; J2250; J2274; J2405; J2704; J3010; J3490; J7060; J7070